=== PATIENT | female | born 1985 | race Caucasian/White ===

== ENCOUNTER 2017-11-13 03:29 | Inpatient (IN) | payer BC ==
[~2017-11-13 03:29] MED LIST: Citric Acid/Sodium Citrate Solution 30 ML Cup PO ONE; Lactated Ringers 1,000 ML IV SCH; Metoclopramide 10 MG/2 ML SDV IVPUSH ONE; Nalbuphine 20 MG/ML 1 ML Syringe IVPUSH PRN; Oxytocin/Lactated Ringers 10 UNIT/1,000 ML BAG IV SCH; Sodium Chloride 0.9% 10 ML Syringe FLUSH PRN; ceFAZolin 2 GM in Premix Bag 1 BAG IV ONE
[2017-11-13] MEDS ORDERED: Morphine PF 1 MG/ML Amp ONE (06:54)
--- NOTE | 2017-11-13 06:55 | PCM.LDHP ---
L&D History of Present Illness - General Date of Service: 11/13/17 Admit Problem/Dx: Patient Status Order with Admit Dx/Problem 11/13/17 05:30 Patient Status [ADT] Routine Admission Diagnosis/Problem Admission Diagnosis/Problem Source of Information: Patient History Limitations: Reports: No Limitations - History of Present Illness Introduction:: Patient is a 32 y/o at 36 5/7 wks who presents for planned RLTCS. Patient had noted ~2 weeks ago symptoms of itching of her hands and feet. Had Bile Acids draw at that time which were at upper limit of normal. At last follow up still noted bothersome symptoms and so labs re-drawn. Results returned yesterday PM and noted to be elevated. She was called and asked to present today. Otherwise doing well. Notes good FM. No other concerns. - Related Data Allergies/Adverse Reactions: Allergies Allergy/AdvReac Type Severity Reaction Status Date / Time ampicillin sodium Allergy Hives Verified 12/22/14 21:48 [From Unasyn] levofloxacin [From Levaquin] Allergy Rash Verified 12/22/14 21:47 sulbactam sodium Allergy Hives Verified 12/22/14 21:48 [From Unasyn] Home Medications: Home Meds Vit No.130/Iron/FA [ Tablet] 1 each PO DAILY 01/08/15 [History] Acetaminophen [Tylenol] 650 mg PO Q6H PRN #50 tablet 01/11/15 [Rx] Acetaminophen/oxyCODONE [Percocet 325-5 MG] 1 tab PO Q8H PRN #20 tablet [Rx] Docusate Sodium [Colace] 100 mg PO BID PRN #50 cap 01/11/15 [Rx] Ibuprofen [Motrin] 200 - 800 mg PO Q6H PRN #1 tablet 01/11/15 [Rx] Lanolin [Lansinoh HPA] 1 applic TOP ASDIRECTED PRN #1 tube 01/11/15 [Rx] Past Medical History Genitourinary History: Reports: Pyelonephritis 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 (Approximate): Endocrine/Metabolic History: Reports: Other (See Below) (Thyroid nodule) - Past Surgical History HEENT Surgical History: Reports: AKIRAIK Female Surgical History: Reports: Section (x2) Social & Family History - Tobacco Use Smoking Status *Q: Never Smoker - Alcohol Use Alcohol Use History: No - Recreational Drug Use Recreational Drug Use: No H&P Review of Systems - Review of Systems: Review Of Systems: See Below General: Reports: No Symptoms Pulmonary: Reports: No Symptoms Cardiovascular: Reports: No Symptoms Gastrointestinal: Reports: No Symptoms Genitourinary: Reports: No Symptoms Musculoskeletal: Reports: No Symptoms Psychiatric: Reports: No Symptoms Neurological: Reports: No Symptoms L&D Exam - Exam Exam: See Below - OB Specific Contraction Intensity: Irritability Movement: Active Heart Tones: Present Heart Tones per Min: 145 Heart Rate (FHR) Variability: Moderate (6-25 bmp) Presentation: Unable to Assess - Exam General: Alert, Oriented, Cooperative Lungs: Clear to Auscultation, Normal Respiratory Effort Cardiovascular: Regular Rate, Regular Rhythm GI/Abdominal Exam: Soft, Non-Tender Extremities: Normal Inspection Skin: Warm, Dry, Intact - Patient Data Lab Results Last 24 hrs: Laboratory Results - last 24 hr 11/13/17 Range/Units 05:35 WBC 11.79 H (3.98-10.04) K/mm3 RBC 4.43 (3.98-5.22) M/mm3 Hgb 11.5 (11.2-15.7) gm/L Hct 35.6 (34.1-44.9) % MCV 80.4 (79.4-94.8) fl MCH 26.0 (25.6-32.2) pg MCHC 32.3 (32.2-35.5) g/dl RDW Std Deviation 40.2 (36.4-46.3) fL Plt Count 501 H (182-369) K/mm3 MPV 9.2 L (9.4-12.3) fl Neut % (Auto) 64.0 (34.0-71.1) % Lymph % (Auto) 26.1 (19.3-51.7) % Emanuel % (Auto) 8.0 (4.7-12.5) % Eos % (Auto) 1.3 (0.7-5.8) Baso % (Auto) 0.2 (0.1-1.2) % Neut # (Auto) 7.55 H (1.56-6.13) K/mm3 Lymph # (Auto) 3.08 (1.18-3.74) K/mm3 Emanuel # (Auto) 0.94 H (0.24-0.36) K/mm3 Eos # (Auto) 0.15 (0.04-0.36) K/mm3 Baso # (Auto) 0.02 (0.01-0.08) K/mm3 Result Diagrams: 11/13/17 05:35 - Problem List (1) 36 weeks gestation of SNOMED Code(s): 72829223 ICD Code: Z3A.36 - 36 WEEKS GESTATION OF Status: Acute Current Visit: Yes (2) Cholestasis of SNOMED Code(s): 892886094 ICD Code: O26.619 - LIVER AND BILIARY TRACT DISORD IN , UNSP TRIMESTER; K83.1 - OBSTRUCTION OF BILE DUCT Status: Acute Current Visit: Yes Qualifiers: Trimester: third trimester Qualified Code(s): O26.613 - Liver and biliary tract disorders in , third trimester; K83.1 - Obstruction of bile duct (3) History of SNOMED Code(s): 452299641 ICD Code: Z98.891 - HISTORY OF UTERINE SCAR FROM PREVIOUS SURGERY Status: Acute Current Visit: Yes (4) Rh negative state in antepartum period SNOMED Code(s): 864372176 ICD Code: O09.899 - SUPERVISION OF OTHER HIGH RISK PREGNANCIES, UNSP TRIMESTER; Z67.91 - UNSPECIFIED BLOOD TYPE, RH NEGATIVE Status: Acute Current Visit: Yes Problem List Initiated/Reviewed/Updated: Yes Orders Last 24hrs: Active Orders 24 hr Category Date Time Status Patient Status [ADT] Routine ADT 11/13/17 05:30 Active Communication Order [RC] ROUTINE Care 11/13/17 02:54 Active Heart Tones [RC] PER UNIT ROUTINE Care 11/13/17 02:54 Active Non Stress Test [RC] PER UNIT ROUTINE Care 11/13/17 02:54 Active Peripheral IV Care [RC] . DIRECTED Care 11/13/17 02:57 Active Procedure Site Prep Instruct [RC] ASDIRECTED Care 11/13/17 02:54 Active Verify Patient Consent Obtain [RC] PER UNIT ROUTINE Care 11/13/17 05:30 Active Vital Signs [RC] PFP Care 11/13/17 02:54 Active RAPID PLASMA REAGIN,RPR [CHEM] Routine Lab 11/13/17 05:35 Received TYPE AND SCREEN [BBK] Routine Lab 11/13/17 05:35 Received Lactated Ringers [Ringers, Lactated] 1,000 ml Med 11/13/17 03:00 Active IV ASDIRECTED Nalbuphine [Nubain] Med 11/13/17 02:54 Active 10 mg IVPUSH Q2H PRN Oxytocin/Lactated Ringers [Pitocin in LR 10 Units/1,000 Med 11/13/17 03:00 Active ML] 10 unit in 1,000 ml IV ASDIRECTED Sodium Chloride 0.9% [Saline Flush] Med 11/13/17 02:54 Active 10 ml FLUSH ASDIRECTED PRN Peripheral IV Insertion Adult [OM.PC] Routine Oth 11/13/17 02:54 Ordered Schedule Procedure [COMM] Per Unit Routine Oth 11/13/17 02:54 Ordered Resuscitation Status Routine Resus Stat 11/13/17 02:54 Ordered Medication Orders Lactated Ringer's (Ringers, Lactated) 1,000 mls @ 125 mls/hr IV ASDIRECTED EUNICE Oxytocin/Lactated Ringer's (Pitocin In Lr 10 Units/1,000 Ml) 10 unit in 1,000 mls @ 100 mls/hr IV ASDIRECTED EUNICE Nalbuphine HCl (Nubain) 10 mg IVPUSH Q2H PRN PRN Reason: pain Sodium Chloride (Saline Flush) 10 ml FLUSH ASDIRECTED PRN PRN Reason: Keep Vein Open Assessment/Plan Comment:: 32 y/o at 36 5/7 wks gestation who presents for planned RLTCS for cholestasis of * Labs drawn * Rh negative, will assess baby blood type to see if additional Rhogam required * Ancef OCTOR (test dose prior) * Consent reviewed and signed
--- NOTE | 2017-11-13 07:06 | PCM.PREANE ---
Preanesthetic Assessment - Anesthesia/Transfusion/Family Hx Anesthesia History: Prior Anesthesia Without Reaction Transfusion History: No Prior Transfusion(s) - Review of Systems General: No Symptoms Pulmonary: Other (running nose) Cardiovascular: No Symptoms Gastrointestinal: No Symptoms Neurological: No Symptoms Other: Reports: None - Physical Assessment NPO Status Date: 11/12/17 NPO Status Time: 22:00 Pulse: 97 Blood Pressure: 133/72 Height: 1.57 m Weight: 66.224 kg ASA Class: 2 Mental Status: Alert & Oriented x3 Airway Class: Mallampati = 2 Dentition: Reports: Normal Dentition Thyro-Mental Finger Breadths: 3 Mouth Opening Finger Breadths: 3 ROM/Head Extension: Full Lungs: Clear to Auscultation - Lab Values: Laboratory Last Values WBC 11.79 K/mm3 (3.98-10.04) H 11/13/17 05:35 RBC 4.43 M/mm3 (3.98-5.22) 11/13/17 05:35 Hgb 11.5 gm/L (11.2-15.7) 11/13/17 05:35 Hct 35.6 % (34.1-44.9) 11/13/17 05:35 MCV 80.4 fl (79.4-94.8) 11/13/17 05:35 MCH 26.0 pg (25.6-32.2) 11/13/17 05:35 MCHC 32.3 g/dl (32.2-35.5) 11/13/17 05:35 RDW Std Deviation 40.2 fL (36.4-46.3) 11/13/17 05:35 Plt Count 501 K/mm3 (182-369) H 11/13/17 05:35 MPV 9.2 fl (9.4-12.3) L 11/13/17 05:35 Neut % (Auto) 64.0 % (34.0-71.1) 11/13/17 05:35 Lymph % (Auto) 26.1 % (19.3-51.7) 11/13/17 05:35 [place] % (Auto) 8.0 % (4.7-12.5) 11/13/17 05:35 Eos % (Auto) 1.3 (0.7-5.8) 11/13/17 05:35 Baso % (Auto) 0.2 % (0.1-1.2) 11/13/17 05:35 Neut # (Auto) 7.55 K/mm3 (1.56-6.13) H 11/13/17 05:35 Lymph # (Auto) 3.08 K/mm3 (1.18-3.74) 11/13/17 05:35 [place] # (Auto) 0.94 K/mm3 (0.24-0.36) H 11/13/17 05:35 Eos # (Auto) 0.15 K/mm3 (0.04-0.36) 11/13/17 05:35 Baso # (Auto) 0.02 K/mm3 (0.01-0.08) 11/13/17 05:35 - Allergies Allergies/Adverse Reactions: Allergies Allergy/AdvReac Type Severity Reaction Status Date / Time ampicillin sodium Allergy Hives Verified 12/22/14 21:48 [From Unasyn] levofloxacin [From Levaquin] Allergy Rash Verified 12/22/14 21:47 sulbactam sodium Allergy Hives Verified 12/22/14 21:48 [From Unasyn] - Acknowledgements Anesthesia Type Planned: Spinal Pt an Appropriate Candidate for the Planned Anesthesia: Yes Alternatives and Risks of Anesthesia Discussed w Pt/Guardian: Yes Pt/Guardian Understands and Agrees with Anesthesia Plan: Yes PreAnesthesia Questionnaire HEENT History: Reports: Other (See Below) (lasik eye surgery) Genitourinary History: Reports: Pyelonephritis 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: Endocrine/Metabolic History: Reports: Other (See Below) (Thyroid nodule) - Past Surgical History HEENT Surgical History: Reports: LASIK, Other (See Below) Female Surgical History: Reports: Section (x2) - SUBSTANCE USE Smoking Status *Q: Never Smoker Recreational Drug Use History: No - HOME MEDS Home Medications: Home Meds Vit No.130/Iron/FA [ Tablet] 1 each PO DAILY 01/08/15 [History] Acetaminophen [Tylenol] 650 mg PO Q6H PRN #50 tablet 01/11/15 [Rx] Acetaminophen/oxyCODONE [Percocet 325-5 MG] 1 tab PO Q8H PRN #20 tablet [Rx] Docusate Sodium [Colace] 100 mg PO BID PRN #50 cap 01/11/15 [Rx] Ibuprofen [Motrin] 200 - 800 mg PO Q6H PRN #1 tablet 01/11/15 [Rx] Lanolin [Lansinoh HPA] 1 applic TOP ASDIRECTED PRN #1 tube 01/11/15 [Rx] - CURRENT (IN HOUSE) MEDS Current Meds: Current Medications Lactated Ringer's (Ringers, Lactated) 1,000 mls @ 125 mls/hr IV ASDIRECTED EUNICE Oxytocin/Lactated Ringer's (Pitocin In Lr 10 Units/1,000 Ml) 10 unit in 1,000 mls @ 100 mls/hr IV ASDIRECTED EUNICE Nalbuphine HCl (Nubain) 10 mg IVPUSH Q2H PRN PRN Reason: pain Sodium Chloride (Saline Flush) 10 ml FLUSH ASDIRECTED PRN PRN Reason: Keep Vein Open Discontinued Medications Citric Acid/Sodium Citrate (Bicitra Solution) 30 ml PO ONETIME ONE Stop: 11/13/17 02:55 Cefazolin Sodium/Dextrose 2 gm (/ Premix) 50 mls @ 100 mls/hr IV ONETIME ONE Stop: 11/13/17 03:23 Metoclopramide HCl (Reglan) 10 mg IVPUSH ONETIME ONE Stop: 11/13/17 02:55 Morphine Sulfate (Duramorph Pf) Confirm Administered Dose 1 mg .ROUTE .STK-MED ONE Stop: 11/13/17 06:55
--- NOTE | 2017-11-13 07:17 | PCM.OPNOTE ---
- General Post-Op/Procedure Note Date of Surgery/Procedure: 11/13/17 Operative Procedure(s): Repeat low transverse Findings: Moderate adhesive disease between the rectus and the fascia. Minimal adhesive disease between the uterus and bladder. Normal appearance of the fallopian tubes and ovaries. Baby boy in a breech presentation. Weight of 6 lbs 12 oz. APGARS of 8 & 9 Pre Op Diagnosis: 36 5/7 wks gestation. History of x 2. Cholestasis of Post-Op Diagnosis: Same Anesthesia Technique: Spinal Primary Surgeon: Maia Green Secondary Surgeon: Susan Mensah Anesthesia Provider: Deandre August Reason Spare Person Was Necessary: Number of prior , speed/safety of case Pathology: Cord blood collected. Placenta discarded Fluid Replacement, Intraop: 3,000 Output, Urine Amount: 70 EBL in mLs: 600 Complications: None Condition: Good Free Text/Narrative:: The risks, benefits, indications, potential complications, and alternatives were explained to the patient and informed consent obtained. After induction of anesthesia, the patient was placed in a supine position and then draped and prepped in the usual sterile manner. A Pfannenstiel incision was made and carried down through the subcutaneous tissue to the fascia. Fascial incision was made and extended transversely. The fascia was from the underlying rectus tissue superiorly and inferiorly. The peritoneum was identified and entered. Peritoneal incision was extended longitudinally. The utero-vesical peritoneal reflection was incised transversely and the bladder flap was bluntly freed from the lower uterine segment. A low transverse uterine incision was made sharply with a scalpel and extended bluntly in a cephalocaudad direction. A baby boy was delivered from a breech presentation with APGARS as above. After the umbilical cord was clamped and cut cord blood was obtained for evaluation. The placenta was removed intact and appeared normal. The uterus was exteriorized and cleared of clots. The uterine outline, tubes and ovaries appeared normal. The uterine incision was closed with running locked sutures of 0 Vicryl. Hemostasis was obtained with a second imbricating layer of 0 vicryl. The uterus was then placed back into the abdomen. The infracolic gutters were cleared of blood clots. The fascia was then reapproximated with running sutures of 0 Vicryl. The sucutaneous tissue was irrigated with sterile warm normal saline, hemostasis obtained with cautery. This layer was also closed with a running 0 vicryl. The skin was reapproximated with running Subcuticular 4-0 monocryl sutures. Instrument, sponge, and needle counts were correct prior the abdominal closure and at the conclusion of the case.
[2017-11-13] MEDS ORDERED: Citric Acid/Sodium Citrate Solution 30 ML Cup ONE (07:24)
[2017-11-13] MEDS ORDERED: Metoclopramide 10 MG/2 ML SDV ONE (07:24)
[2017-11-13] MEDS ORDERED: Oxytocin 10 Units/1 ML SDV ONE (08:17)
[2017-11-13] MEDS ORDERED: Bupivacaine 0.75%/D5W 2 ML Amp ONE (08:17)
[2017-11-13] MEDS ORDERED: Phenylephrine/Normal Saline 100 MCG/ML 10 ML Syringe ONE (08:25)
[2017-11-13] MEDS ORDERED: Lactated Ringers 1,000 ML ONE ×3 (08:25→08:39)
[2017-11-13] MEDS ORDERED: ceFAZolin 1 GM Vial ONE (08:25)
[2017-11-13] MEDS ORDERED: diphenhydrAMINE 50 MG/ML SDV IVPUSH PRN (08:43)
[2017-11-13] MEDS ORDERED: Ketorolac 30 MG/ML SDV IVPUSH SCH (08:45)
--- NOTE | 2017-11-13 08:59 | PCM.POSTAN ---
POST ANESTHESIA ASSESSMENT - MENTAL STATUS Mental Status: Alert, Oriented - VITAL SIGNS Pulse Rate: 107 SaO2: 98 Resp Rate: 13 Blood Pressure: 105/54 Temperature: 98.2 F - RESPIRATORY Respiratory Status: Respiratory Rate WNL, Airway Patent, O2 Saturation Stable - CARDIOVASCULAR CV Status: Pulse Rate WNL, Blood Pressure Stable - GASTROINTESTINAL GI Status: No Symptoms - PAIN Pain Score: 0 - POST OP HYDRATION Hydration Status: Adequate & Stable
[2017-11-13] MEDS ORDERED: Ondansetron 4 MG/2 ML SDV IV PRN (09:39)
[2017-11-13] MEDS ORDERED: Dextrose 5%-Lactated Ringers 1,000 ML IV SCH (09:39)
[2017-11-13] MEDS ORDERED: Lanolin 100% Cream 7 GM Tube TOP PRN (09:39)
[2017-11-13] MEDS ORDERED: Docusate Sodium 100 MG Cap PO PRN (09:39)
[2017-11-13] MEDS ORDERED: Naloxone 0.4 MG/ML SDV IVPUSH PRN (09:39)
[2017-11-13] MEDS: Ketorolac 30 MG/ML SDV IVPUSH SCH ×2 (15:05→21:37)
[2017-11-14] MEDS: Ketorolac 30 MG/ML SDV IVPUSH SCH (03:02)
[2017-11-14] MEDS: Acetaminophen/oxyCODONE 325-5 MG Tab PO PRN ×4 (03:57→21:58)
[2017-11-14] MEDS: Simethicone 80 MG Tab.Chew PO PRN ×2 (03:59→20:06)
--- NOTE | 2017-11-14 06:31 | PCM.PNPP ---
- General Info Date of Service: 11/14/17 Subjective Update: POD1 s/p RCS Ambulating. voiding. tolerating diet. Functional Status: Reports: Pain Controlled - Review of Systems General: Reports: No Symptoms HEENT: Reports: No Symptoms Pulmonary: Reports: No Symptoms Cardiovascular: Reports: No Symptoms Gastrointestinal: Reports: No Symptoms Genitourinary: Reports: No Symptoms Musculoskeletal: Reports: No Symptoms Skin: Reports: No Symptoms Neurological: Reports: No Symptoms Psychiatric: Reports: No Symptoms - General Info Date of Service: 11/14/17 - Patient Data Vital Signs - Most Recent: Last Vital Signs Temp 37.0 C 11/14/17 03:00 Pulse 78 11/14/17 03:00 Resp 14 11/14/17 04:00 BP 116/72 11/14/17 03:00 Pulse Ox 98 11/14/17 04:00 Weight - Most Recent: 66.678 kg I&O - Last 24 Hours: Intake & Output 11/13/17 11/13/17 11/14/17 14:59 22:59 06:59 Intake Total 4405 1600 Output Total 715 1125 1850 Balance 3690 475 -1850 Lab Results - Last 24 Hours: Laboratory Results - last 24 hr 11/13/17 11/13/17 Range/Units 05:35 05:35 RPR Non-reactive (NONREACTIVE) Blood Type O NEGATIVE Gel Antibody Screen Positive Med Orders - Current: Current Medications Docusate Sodium (Colace) 100 mg PO Q12H PRN PRN Reason: Constipation Emollient Ointment (Lansinoh Hpa) 0 gm TOP ASDIRECTED PRN PRN Reason: Sore Nipples Ibuprofen (Motrin) 600 mg PO Q6H PRN PRN Reason: mild pain or fever Naloxone HCl (Narcan) 0.1 mg IVPUSH SEECOMMENT PRN PRN Reason: Respiratory Depression Ondansetron HCl (Zofran) 4 mg IV Q8H PRN PRN Reason: Nausea/Vomiting Oxycodone/Acetaminophen (Percocet 325-5 Mg) 2 tab PO Q4H PRN PRN Reason: Pain (moderate 4-6) Last Admin: 11/14/17 03:57 Dose: 2 tab Simethicone (Simethicone) 80 mg PO Q6HR PRN PRN Reason: Gas Last Admin: 11/14/17 03:59 Dose: 80 mg Discontinued Medications Bupivacaine HCl/Dextrose (Marcaine 0.75% Spinal) Confirm Administered Dose 2 ml .ROUTE .STK-MED ONE Stop: 11/13/17 08:18 Cefazolin Sodium (Ancef) Confirm Administered Dose 2 gm .ROUTE .STK-MED ONE Stop: 11/13/17 08:26 Citric Acid/Sodium Citrate (Bicitra Solution) 30 ml PO ONETIME ONE Stop: 11/13/17 02:55 Last Admin: 11/13/17 07:27 Dose: 30 ml Citric Acid/Sodium Citrate (Bicitra Solution) Confirm Administered Dose 30 ml .ROUTE .STK-MED ONE Stop: 11/13/17 07:25 Last Admin: 11/13/17 07:30 Dose: Not Given Diphenhydramine HCl (Benadryl) 25 mg IVPUSH Q6H PRN PRN Reason: Pruritis Stop: 11/13/17 12:00 Cefazolin Sodium/Dextrose 2 gm (/ Premix) 50 mls @ 100 mls/hr IV ONETIME ONE Stop: 11/13/17 03:23 Last Admin: 11/13/17 11:43 Dose: Not Given Lactated Ringer's (Ringers, Lactated) 1,000 mls @ 125 mls/hr IV ASDIRECTED COUNTS INCLUDE 234 BEDS AT THE [facility] Oxytocin/Lactated Ringer's (Pitocin In Lr 10 Units/1,000 Ml) 10 unit in 1,000 mls @ 100 mls/hr IV ASDIRECTED COUNTS INCLUDE 234 BEDS AT THE [facility] Lactated Ringer's (Ringers, Lactated) Confirm Administered Dose 1,000 mls @ as directed .ROUTE .ST-MED ONE Stop: 11/13/17 08:26 Lactated Ringer's (Ringers, Lactated) Confirm Administered Dose 1,000 mls @ as directed .ROUTE .STK-MED ONE Stop: 11/13/17 08:26 Lactated Ringer's (Ringers, Lactated) Confirm Administered Dose 1,000 mls @ as directed .ROUTE .STK-MED ONE Stop: 11/13/17 08:40 Dextrose/Lactated Ringer's (Dextrose 5%-Lactated Ringers) 1,000 mls @ 125 mls/ hr IV ASDIRECTED COUNTS INCLUDE 234 BEDS AT THE [facility] Stop: 11/13/17 17:38 Last Admin: 11/13/17 11:43 Dose: Not Given Ketorolac Tromethamine (Toradol) 30 mg IVPUSH ONETIME EUNIEC Stop: 11/13/17 12:00 Last Admin: 11/13/17 09:43 Dose: 30 mg Ketorolac Tromethamine (Toradol) 30 mg IVPUSH Q6H EUNICE Stop: 11/14/17 03:01 Last Admin: 11/14/17 03:02 Dose: 30 mg Lidocaine HCl (Xylocaine-Mpf 1%) 5 ml .ROUTE .STK-MED ONE Stop: 11/13/17 08:18 Metoclopramide HCl (Reglan) 10 mg IVPUSH ONETIME ONE Stop: 11/13/17 02:55 Last Admin: 11/13/17 07:27 Dose: 10 mg Metoclopramide HCl (Reglan) Confirm Administered Dose 10 mg .ROUTE .STK-MED ONE Stop: 11/13/17 07:25 Last Admin: 11/13/17 07:30 Dose: Not Given Morphine Sulfate (Duramorph Pf) Confirm Administered Dose 1 mg .ROUTE .STK-MED ONE Stop: 11/13/17 06:55 Nalbuphine HCl (Nubain) 10 mg IVPUSH Q2H PRN PRN Reason: pain Oxytocin (Pitocin) Confirm Administered Dose 10 unit .ROUTE .STK-MED ONE Stop: 11/13/17 08:18 Phenylephrine HCl (Phenylephrine In Ns 100 Mcg/Ml) Confirm Administered Dose 1 mg .ROUTE .STK-MED ONE Stop: 11/13/17 08:26 Sodium Chloride (Saline Flush) 10 ml FLUSH ASDIRECTED PRN PRN Reason: Keep Vein Open - Infant Interaction Support Person: - Recovery Exam Fundal Tone: Firm Fundal Level: 1 Fingerbreadths Below Umbilicus Fundal Placement: Midline Lochia Amount: Scant Lochia Color: Rubra/Red Perineum Description: Intact, Minimal Bruising/Swelling Episiotomy/Laceration: None Bladder Status: Indwelling Catheter in Place Urinary Elimination: Other (see below) Other Urinary Elimination, : castorena removed - Exam General: Alert, Oriented HEENT: Pupils Equal Neck: Supple Lungs: Clear to Auscultation, Normal Respiratory Effort Cardiovascular: Regular Rate, Regular Rhythm GI/Abdominal Exam: Normal Bowel Sounds, Soft, Non-Tender, No Organomegaly, No Distention, No Abnormal Bruit, No Mass, Pelvis Stable Extremities: Normal Inspection, Normal Range of Motion, Non-Tender, No Pedal Edema, Normal Capillary Refill Skin: Warm, Dry, Intact Wound/Incisions: Healing Well Neurological: No New Focal Deficit Psy/Mental Status: Alert, Normal Affect, Normal Mood - Problem List Review Problem List Initiated/Reviewed/Updated: Yes - My Orders Last 24 Hours: My Active Orders 11/13/17 14:21 RHOGAM, [RHIG WORKUP, ] [BBK] Stat 11/14/17 03:17 Simethicone 80 mg PO Q6HR PRN - Assessment Assessment:: POD1 Doing well. No complaints. Suspect discharge tomorrow. - Plan Plan:: 32 year old s/p RCS Doing well Probable discharge tomorrow.
[2017-11-14] MEDS: Ibuprofen 600 MG Tab PO PRN ×2 (12:57→20:02)
--- NOTE | 2017-11-14 16:43 | PCM48HPAN ---
Post Anesthesia Note - EVALUATION WITHIN 48HRS OF ANESTHETIC Vital Signs in Normal Range: Yes Patient Participated in Evaluation: Yes Respiratory Function Stable: Yes Airway Patent: Yes Cardiovascular Function Stable: Yes Hydration Status Stable: Yes Pain Control Satisfactory: Yes Nausea and Vomiting Control Satisfactory: Yes Mental Status Recovered: Yes Pulse Rate: 82 Resp Rate: 14 Temperature: 98.1 F Blood Pressure: 113/76 - COMMENTS/OBSERVATIONS Free Text/Narrative:: Patient on her postoperative day 1. Patient has stated understanding about possible backaches following epidural / spinal anesthesia. Patient denies any headache, lightheadedness or backache at this time. Rates her postoperative pain as 3/4/10. Ambulating, no difficulty urinating.
[2017-11-15] MEDS: Ibuprofen 600 MG Tab PO PRN (04:50)
[2017-11-15] MEDS: Acetaminophen/oxyCODONE 325-5 MG Tab PO PRN (08:38)
--- NOTE | 2017-11-15 08:46 | PCM.DCSUM1 ---
Discharge Summary - Hospital Course Brief History: Admitted for planned RCS for cholestasis of Diagnosis: Stroke: No - Discharge Data Discharge Date: 11/15/17 Discharge Disposition: Home, Self-Care 01 Condition: Good - Patient Summary/Data Operative Procedure(s) Performed: Repeat low transverse - Patient Instructions Diet: Usual Diet as Tolerated Activity: No Strenuous Activities Activity, Other: pelvic rest Driving: May Drive Today Showering/Bathing: May Shower - Discharge Plan *PRESCRIPTION DRUG MONITORING PROGRAM REVIEWED*: No *COPY OF PRESCRIPTION DRUG MONITORING REPORT IN PATIENT MARTÍNEZ: No Home Medications: Home Meds Vit No.130/Iron/FA [ Tablet] 1 each PO DAILY 01/08/15 [History] Referrals: Maia Green MD [Primary Care Provider] - (2 wks) - Discharge Summary/Plan Comment DC Time >30 min.: No - General Info Date of Service: 11/15/17 Functional Status: Reports: Pain Controlled - Review of Systems General: Reports: No Symptoms HEENT: Reports: No Symptoms Pulmonary: Reports: No Symptoms Cardiovascular: Reports: No Symptoms Gastrointestinal: Reports: No Symptoms Genitourinary: Reports: No Symptoms Musculoskeletal: Reports: No Symptoms Skin: Reports: No Symptoms Neurological: Reports: No Symptoms Psychiatric: Reports: No Symptoms - Patient Data Vitals - Most Recent: Last Vital Signs Temp 36.9 C 11/15/17 04:44 Pulse 79 11/15/17 04:44 Resp 15 11/15/17 04:44 BP 86/62 L 11/15/17 04:44 Pulse Ox 96 11/15/17 04:44 Weight - Most Recent: 66.678 kg I&O - Last 24 hours: Intake & Output 11/14/17 11/15/17 11/15/17 22:59 06:59 14:59 Intake Total 320 Balance 320 Lab Results - Last 24 hrs: Laboratory Results - last 24 hr 11/14/17 Range/Units 05:45 Blood Type O NEGATIVE Gel Antibody Screen Positive Screen 0 ros/5 flds - neg RhIG Candidate? Yes Rhogam Indicated Yes, baby rh pos H Med Orders - Current: Current Medications Docusate Sodium (Colace) 100 mg PO Q12H PRN PRN Reason: Constipation Emollient Ointment (Lansinoh Hpa) 0 gm TOP ASDIRECTED PRN PRN Reason: Sore Nipples Ibuprofen (Motrin) 600 mg PO Q6H PRN PRN Reason: mild pain or fever Last Admin: 11/15/17 04:50 Dose: 600 mg Naloxone HCl (Narcan) 0.1 mg IVPUSH SEECOMMENT PRN PRN Reason: Respiratory Depression Ondansetron HCl (Zofran) 4 mg IV Q8H PRN PRN Reason: Nausea/Vomiting Oxycodone/Acetaminophen (Percocet 325-5 Mg) 2 tab PO Q4H PRN PRN Reason: Pain (moderate 4-6) Last Admin: 11/15/17 08:38 Dose: 2 tab Simethicone (Simethicone) 80 mg PO Q6HR PRN PRN Reason: Gas Last Admin: 11/14/17 20:06 Dose: 80 mg Discontinued Medications Bupivacaine HCl/Dextrose (Marcaine 0.75% Spinal) Confirm Administered Dose 2 ml .ROUTE .STK-MED ONE Stop: 11/13/17 08:18 Cefazolin Sodium (Ancef) Confirm Administered Dose 2 gm .ROUTE .STK-MED ONE Stop: 11/13/17 08:26 Citric Acid/Sodium Citrate (Bicitra Solution) 30 ml PO ONETIME ONE Stop: 11/13/17 02:55 Last Admin: 11/13/17 07:27 Dose: 30 ml Citric Acid/Sodium Citrate (Bicitra Solution) Confirm Administered Dose 30 ml .ROUTE .STK-MED ONE Stop: 11/13/17 07:25 Last Admin: 11/13/17 07:30 Dose: Not Given Diphenhydramine HCl (Benadryl) 25 mg IVPUSH Q6H PRN PRN Reason: Pruritis Stop: 11/13/17 12:00 Cefazolin Sodium/Dextrose 2 gm (/ Premix) 50 mls @ 100 mls/hr IV ONETIME ONE Stop: 11/13/17 03:23 Last Admin: 11/13/17 11:43 Dose: Not Given Lactated Ringer's (Ringers, Lactated) 1,000 mls @ 125 mls/hr IV ASDIRECTED [facility] Oxytocin/Lactated Ringer's (Pitocin In Lr 10 Units/1,000 Ml) 10 unit in 1,000 mls @ 100 mls/hr IV ASDIRECTED [facility] Lactated Ringer's (Ringers, Lactated) Confirm Administered Dose 1,000 mls @ as directed .ROUTE .STK-MED ONE Stop: 11/13/17 08:26 Lactated Ringer's (Ringers, Lactated) Confirm Administered Dose 1,000 mls @ as directed .ROUTE .STK-MED ONE Stop: 11/13/17 08:26 Lactated Ringer's (Ringers, Lactated) Confirm Administered Dose 1,000 mls @ as directed .ROUTE .STK-MED ONE Stop: 11/13/17 08:40 Dextrose/Lactated Ringer's (Dextrose 5%-Lactated Ringers) 1,000 mls @ 125 mls/ hr IV ASDIRECTED [facility] Stop: 11/13/17 17:38 Last Admin: 11/13/17 11:43 Dose: Not Given Ketorolac Tromethamine (Toradol) 30 mg IVPUSH ONETIME [facility] Stop: 11/13/17 12:00 Last Admin: 11/13/17 09:43 Dose: 30 mg Ketorolac Tromethamine (Toradol) 30 mg IVPUSH Q6H [facility] Stop: 11/14/17 03:01 Last Admin: 11/14/17 03:02 Dose: 30 mg Lidocaine HCl (Xylocaine-Mpf 1%) 5 ml .ROUTE .STK-MED ONE Stop: 11/13/17 08:18 Metoclopramide HCl (Reglan) 10 mg IVPUSH ONETIME ONE Stop: 11/13/17 02:55 Last Admin: 11/13/17 07:27 Dose: 10 mg Metoclopramide HCl (Reglan) Confirm Administered Dose 10 mg .ROUTE .STK-MED ONE Stop: 11/13/17 07:25 Last Admin: 11/13/17 07:30 Dose: Not Given Morphine Sulfate (Duramorph Pf) Confirm Administered Dose 1 mg .ROUTE .STK-MED ONE Stop: 11/13/17 06:55 Nalbuphine HCl (Nubain) 10 mg IVPUSH Q2H PRN PRN Reason: pain Oxytocin (Pitocin) Confirm Administered Dose 10 unit .ROUTE .STK-MED ONE Stop: 11/13/17 08:18 Phenylephrine HCl (Phenylephrine In Ns 100 Mcg/Ml) Confirm Administered Dose 1 mg .ROUTE .STK-MED ONE Stop: 08/17/18 08:26 Sodium Chloride (Saline Flush) 10 ml FLUSH ASDIRECTED PRN PRN Reason: Keep Vein Open - Exam General: Reports: Alert, Oriented HEENT: Reports: Pupils Equal, Pupils Reactive, EOMI, Mucous Membr. Moist/[place] Neck: Reports: Supple Lungs: Reports: Clear to Auscultation, Normal Respiratory Effort Cardiovascular: Reports: Regular Rate, Regular Rhythm GI/Abdominal Exam: Normal Bowel Sounds, Soft, Non-Tender, No Organomegaly, No Distention, No Abnormal Bruit, No Mass, Pelvis Stable (Female) Exam: Normal External Exam, Normal Speculum Exam, Normal Bimanual Exam Back Exam: Reports: Normal Inspection, Full Range of Motion Extremities: Normal Inspection, Normal Range of Motion, Non-Tender, No Pedal Edema, Normal Capillary Refill Skin: Reports: Warm, Dry, Intact Wound/Incisions: Reports: Healing Well Neurological: Reports: No New Focal Deficit Psy/Mental Status: Reports: Alert, Normal Affect, Normal Mood
[2017-11-15 09:17] VITALS: BP 115/72
== END 2017-11-15 11:45 | disposition home or self-care (01) | DRG 540 ==
LOC: JD.OB 05:11
PROVIDERS: ADMIT Obstetrics & Gynecology; ATTEND Obstetrics & Gynecology
PROC: 10D00Z1 Extraction of Products of Conception, Low, Open Approach (ICD-10-PCS; principal; 2017-11-13)
PROC: 6A550ZT Pheresis of Cord Blood Stem Cells, Single (ICD-10-PCS; principal; 2017-11-13)
PROC: 3E0234Z Introduction of Serum, Toxoid and Vaccine into Muscle, Percutaneous Approach (ICD-10-PCS; 2017-11-14)
DX: O26.62 Liver and biliary tract disorders in childbirth (principal); K83.1 Obstruction of bile duct; Z37.0 Single live birth; O34.211 Maternal care for low transverse scar from previous cesarean delivery; N85.8 Other specified noninflammatory disorders of uterus; Z3A.36 36 weeks gestation of pregnancy; Z88.1 Allergy status to other antibiotic agents; Z88.8 Allergy status to other drugs, medicaments and biological substances; O32.1XX0 Maternal care for breech presentation, not applicable or unspecified; O26.893 Other specified pregnancy related conditions, third trimester; Z67.91 Unspecified blood type, Rh negative
CPT/HCPCS: 36415; 59025; 85025; 85027; 85461; 86592; 86850; 86870; 86900; 86901; 94762; A9270-GY; J0690; J1885; J2274; J2370; J2590; J2765; J2790; J7120